=== PATIENT | female | born 1955 | race Caucasian/White ===

== ENCOUNTER 2018-07-31 00:14 | Emergency (ER) | payer MEDICARE, BC ==
[2018-07-31 00:23] VITALS: BP 126/73
--- NOTE | 2018-07-31 01:11 | ER Document Report ---
ED General - General Chief Complaint: Skin Problem Stated Complaint: ARM PAIN Time Seen by Provider: 07/31/18 00:41 Notes: Patient is a 62-year-old female with a past medical history of a left elbow arthroplasty done at [facility] on 07/18 who presents with 24 hours of drainage from the wound as well as increasing swelling. She notes a mild, throbbing, aching pain to the area. Nothing improves or worsens her symptoms. She denies associated fever or constitutional symptoms. She has not contacted her doctor regarding today's concerns. No previous history of the same. She denies any additional symptoms or concerns. TRAVEL OUTSIDE OF THE [place] IN LAST 30 DAYS: No - Related Data Allergies/Adverse Reactions: No Known Allergies Allergy (Verified 01/11/14 14:01) Past Medical History - General Information source: Patient - Social History Smoking Status: Current Every Day Smoker Frequency of alcohol use: None Drug Abuse: None Lives with: Spouse/Significant other Family History: Arthritis, CAD, Malignancy Patient has suicidal ideation: No Patient has homicidal ideation: No - Past Medical History Cardiac Medical History: Reports: Hx Hypercholesterolemia Pulmonary Medical History: Reports: Hx COPD, Hx Pneumonia Denies: Hx Tuberculosis Neurological Medical History: Reports: Hx Seizures Renal/ Medical History: Denies: Hx Peritoneal Dialysis GI Medical History: Reports: Hx Hepatitis - c, Hx Hiatal Hernia Psychiatric Medical History: Reports: Hx Depression Infectious Medical History: Reports: Hx Hepatitis - c Past Surgical History: Reports: Hx Section - x1, Hx Cholecystectomy, Hx Orthopedic Surgery - carpal tunnel surgeries, right ankle. Denies: Hx Pacemaker - Immunizations Immunizations up to date: Yes Hx Diphtheria, Pertussis, Tetanus Vaccination: Yes Hx Pneumococcal Vaccination: 10/11/12 Review of Systems - Review of Systems Notes: Constitutional: Negative for fever. HENT: Negative for sore throat. Eyes: Negative for visual changes. Cardiovascular: Negative for chest pain. Respiratory: Negative for shortness of breath. Gastrointestinal: Negative for abdominal pain, vomiting or diarrhea. Genitourinary: Negative for dysuria. Musculoskeletal: Negative for back pain. Skin: Positive for rash. Neurological: Negative for headaches, weakness or numbness. 10 point ROS negative except as marked above and in HPI. Physical Exam - Vital signs Vitals: Temp Pulse Resp BP Pulse Ox 99.3 F 102 H 18 126/73 H 95 07/31/18 00:22 07/31/18 00:22 07/31/18 00:22 07/31/18 00:22 07/31/18 00:22 Interpretation: Tachycardic - Resolved at the time my assessment Notes: PHYSICAL EXAMINATION: GENERAL: Well-appearing, well-nourished and in no acute distress. HEAD: Atraumatic, normocephalic. EYES: Pupils equal round and reactive to light, extraocular movements intact, sclera anicteric, conjunctiva are normal. ENT: nares patent, oropharynx clear without exudates. Moist mucous membranes. NECK: Normal range of motion, supple without lymphadenopathy LUNGS: Breath sounds clear to auscultation bilaterally and equal. No wheezes rales or rhonchi. HEART: Regular rate and rhythm without murmurs ABDOMEN: Soft, nontender, normoactive bowel sounds. No guarding, no rebound. No masses appreciated. EXTREMITIES: Normal range of motion, no pitting or edema. No cyanosis. NEUROLOGICAL: No focal neurological deficits. Moves all extremities spontaneously and on command. PSYCH: Normal mood, normal affect. SKIN: Warm, Dry, normal turgor, overall well healing incision over the left elbow with a small amount of purulent drainage from a punctate opening near the lateral epicondyle Course - Re-evaluation Re-evalutation: 07/31/18 01:09 Patient presents with a mild amount of purulent drainage from an incision over her left elbow after she had a left elbow replacement. No significant cellulitis or erythema to the area, no pain on palpation. Full flexion extension of the elbow. Given the small amount of purulent drainage around the incisional site itself the patient will be started on antibiotics, cephalexin for the next 7 days. I have advised very close follow-up with her orthopedic surgeon. I do not see indication for labs or imaging at this point given the absence of vital sign derangements, fever or constitutional symptoms. Initial heart rate was 102 in triage which has completely resolved at the time of my evaluation is currently 84. At this time will discharge with return precautions and follow-up recommendations. Verbal discharge instructions given a the bedside and opportunity for questions given. Medication warnings reviewed. Patient is in agreement with this plan and has verbalized understanding of return precautions and the need for primary care follow-up in the next 24-72 hours. - Vital Signs Vital signs: Temp Pulse Resp BP Pulse Ox 99.3 F 102 H 18 126/73 H 95 07/31/18 00:22 07/31/18 00:22 07/31/18 00:22 07/31/18 00:22 07/31/18 00:22 Discharge - Discharge Clinical Impression: Incisional infection, Incisional pain Condition: Good Disposition: HOME, SELF-CARE Additional Instructions: The rash is likely due to infection of your skin related to your recent surgery. You need to take the antibiotics as prescribed. Do not stop even if the rash goes away until you have completed all the antibiotics. Please contact your orthopedic surgeon at your earliest ability, ideally tomorrow morning to notify them of the your visit to the emergency department and that you are currently on antibiotics. You should also return if you develop fevers with temperature greater than 101, persistent vomiting, worsening pain, or have any other symptoms that are concerning to you. Prescriptions: Cephalexin Monohydrate [Keflex 500 mg Capsule] 500 mg PO Q6H 7 Days capsule Referrals: [facility] [NO LOCAL MD] - Follow up as needed
[2018-07-31] MEDS ORDERED: CEPHALEXIN 500 MG CAPSULE PO ONE (01:12)
== END 2018-07-31 01:39 | disposition home or self-care (01) ==
LOC: ER 00:14
DX: T81.49XA Infection following a procedure, other surgical site, initial encounter (principal); Z98.890 Other specified postprocedural states; G89.18 Other acute postprocedural pain; M25.522 Pain in left elbow; F17.200 Nicotine dependence, unspecified, uncomplicated; J44.9 Chronic obstructive pulmonary disease, unspecified; R21 Rash and other nonspecific skin eruption
CPT/HCPCS: 99283; A9270

== ENCOUNTER 2018-09-19 12:33 | Emergency (ER) | payer BC ==
[2018-09-19 12:38] VITALS: BP 118/71
== END 2018-09-19 13:00 | disposition left against medical advice (07) ==
LOC: ER 12:33
DX: Z53.21 Procedure and treatment not carried out due to patient leaving prior to being seen by health care provider (principal)

== ENCOUNTER 2020-06-06 20:41 | Emergency (ER) | payer MEDICARE, BC ==
[2020-06-06 20:50] VITALS: BP 149/90
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
[2020-06-06 21:33] LABS: ABSOLUTE BASOPHILS # (AUTO) 0.1 10^3/uL (0.0-0.2); ABSOLUTE EOSINOPHILS # (AUTO) 0.2 10^3/uL (0.0-0.6); ABSOLUTE LYMPHOCYTES (AUTO) 3.6 10^3/uL (0.5-4.7); ABSOLUTE MONOCYTES (AUTO) 1.3 10^3/uL (0.1-1.4); ABSOLUTE NEUT (AUTO) 9.6 10^3/uL (1.7-8.2); BASOPHILS % (AUTO) 0.5 % (0-2); EOSINOPHILS % (AUTO) 1.2 % (0-6); HEMATOCRIT 37.4 % (36.0-47.0); HEMOGLOBIN 12.5 g/dL (12.0-15.5); LYMPHOCYTES % (AUTO) 24.3 % (13-45); MEAN CORPUSCULAR HEMOGLOBIN 27.1 pg (27.0-33.4); MEAN CORPUSCULAR HGB CONC 33.5 g/dL (32.0-36.0); MEAN CORPUSCULAR VOLUME 81 fl (80-97); MONOCYTES % (AUTO) 8.7 % (3-13); PLATELET COUNT 445 10^3/uL (150-450); RED BLOOD COUNT 4.62 10^6/uL (3.72-5.28); RED CELL DISTRIBUTION WIDTH 14.5 % (11.5-14.0); SEGMENTED NEUTROPHILS % (AUTO) 65.3 % (42-78); TOTAL CELLS COUNTED % (AUTO) 100 %; WHITE BLOOD COUNT 14.8 10^3/uL (4.0-10.5)
[2020-06-06 21:48] LABS: ALBUMIN 4.5 g/dL (3.5-5.0); ALKALINE PHOSPHATASE 132 U/L (38-126); ANION GAP 13 (5-19); ASPARTATE AMINO TRANSFERASE 37 U/L (14-36); BILIRUBIN,DIRECT 0.4 mg/dL (0.0-0.4); BILIRUBIN,TOTAL 0.4 mg/dL (0.2-1.3); BLOOD UREA NITROGEN 19 mg/dL (7-20); CALCIUM 10.5 mg/dL (8.4-10.2); CARBON DIOXIDE 28 mmol/L (22-30); CHLORIDE 100 mmol/L (98-107); GLUCOSE 102 mg/dL (75-110); POTASSIUM 5.1 mmol/L (3.6-5.0); TOTAL PROTEIN 8.3 g/dL (6.3-8.2)
--- NOTE | 2020-06-06 21:56 | RADIOLOGY REPORT (SQ) ---
CLINICAL INDICATION: Right flank pain. . TECHNIQUE: Noncontrast spiral axial CT imaging was obtained of the abdomen and pelvis with multiplanar reconstructions. This exam was performed according to our departmental dose-optimization program, which includes automated exposure control, adjustment of the mA and/or kV according to patient size and/or use of iterative reconstruction techniques. COMPARISON: None. CORRELATION: None. FINDINGS: Abdomen: The lung bases demonstrate mild scarring right lung base. No acute process.. The heart is of normal size. Small pericardial effusion, not percutaneously accessible. No pleural fluid.. Remote postsurgical change to the sternum and right anterior ribs The liver is homogeneous. The gallbladder is surgically absent. The pancreas is of grossly normal contour on this noncontrast examination. The spleen is unremarkable. The adrenals are unremarkable. The kidneys appear grossly normal without evidence of urolithiasis or hydronephrosis. There is no evidence of free air. No free fluid. No bulky adenopathy. Abdominal aorta is nonaneurysmal. Pelvis: The bowel is nonobstructed. The bowel is unopacified with oral contrast. Pelvic contents are unremarkable. The appendix is not seen. Moderate hard stool within the colon.. Visualized bones demonstrate age-appropriate osteoarthritis. IMPRESSION: No acute intra-abdominal process is identified. The cause of the patient's right flank pain is not identified on this examination..
== END 2020-06-07 00:33 | disposition left against medical advice (07) ==
LOC: ER 20:41
DX: R10.9 Unspecified abdominal pain (principal); D72.829 Elevated white blood cell count, unspecified; J44.9 Chronic obstructive pulmonary disease, unspecified; Z87.19 Personal history of other diseases of the digestive system; Z90.49 Acquired absence of other specified parts of digestive tract; Z53.20 Procedure and treatment not carried out because of patient's decision for unspecified reasons
CPT/HCPCS: 36415; 74176; 80053; 83690; 85025; 87086; 99281

== ENCOUNTER 2020-06-07 07:38 | Emergency (ER) | payer MEDICARE, BC ==
--- NOTE | 2020-06-07 08:42 | ER Document Report ---
ED GI/ - General Chief Complaint: Upper Abdominal Pain Stated Complaint: URINARY ISSUES Time Seen by Provider: 06/07/20 08:33 Primary Care Provider: PAYAM MCALLISTER MD [NO LOCAL MD] - Follow up as needed Notes: CHIEF COMPLAINT: Right flank pain for 2 days HPI: 64-year-old female presenting with right flank pain for 2 days fairly constant worse with movement or certain position changes. No fever. Patient does report some urinary hesitancy and retention since last night. No chest pain. No shortness of breath. Patient states she was seen in the emergency department last night but left because the wait times were too long. She states she was called back today ROS: See HPI - all other systems were reviewed and are otherwise negative Constitutional: no fever Eyes: no drainage, no blurred vision ENT: no runny nose, no sore throat Cardiovascular: no chest pain Resp: no SOB, no cough GI: no vomiting, no diarrhea, + abdominal pain : no dysuria, positive urinary hesitancy Integumentary: no rash Allergy: no hives Musculoskeletal: no extremity pain or swelling Neurological: no numbness/tingling, no weakness MEDICATIONS: I agree with the patient medications as charted by the RN. ALLERGIES: I agree with the allergies as charted by the RN. PAST MEDICAL HISTORY/PAST SURGICAL HISTORY: Reviewed and agree as charted by RN. SOCIAL HISTORY: Reviewed and agree as charted by RN. FAMILY HISTORY: No significant familial comorbid conditions directly related to patient complaint EXAM: Reviewed vital signs as charted by RN. CONSTITUTIONAL: Alert and oriented and responds appropriately to questions. Well-appearing; well-nourished HEAD: Normocephalic; atraumatic EYES: PERRL; Conjunctivae clear, sclerae non-icteric ENT: normal nose; no rhinorrhea; moist mucous membranes; pharynx without lesions noted, no uvula edema or deviation, no tonsillar hypertrophy, phonation normal NECK: Supple without meningismus; non-tender; no cervical lymphadenopathy, no masses CARD: RRR; no murmurs, no clicks, no rubs, no gallops; symmetric distal pulses RESP: Normal chest excursion without splinting or tachypnea; breath sounds clear and equal bilaterally; no wheezes, no rhonchi, no rales, pulse oximetry 97% on room air not hypoxic ABD/GI: Normal bowel sounds; non-distended; soft, mild tenderness through the right upper quadrant on palpation. No visible rash on the abdominal wall, no rebound, no guarding; no palpable organomegaly or masses. BACK: The back appears normal and is non-tender to palpation, there is no CVA tenderness EXT: Normal ROM in all joints; non-tender to palpation; no cyanosis, no effusions, no edema SKIN: Normal color for age and race; warm; dry; good turgor; no acute lesions noted NEURO: Moves all extremities equally; Motor and sensory function intact PSYCH: The patient's mood and manner are appropriate. Grooming and personal hygiene are appropriate. MDM: 64-year-old female with history of cholecystectomy with right upper quadrant pain for 2 days. Patient showed a mild leukocytosis on yesterday's lab work of 14.6. Did not obtain urinalysis last night. Did have CT of the abdomen and pelvis which showed no acute abnormalities other than constipation. Will re check lab work today will obtain urinalysis will obtain chest x-ray given the right upper quadrant pain to ensure no pleural component. Low suspicion for ACS. TRAVEL OUTSIDE OF THE [place] IN LAST 30 DAYS: No - Related Data Allergies/Adverse Reactions: No Known Allergies Allergy (Verified 09/19/18 12:34) Past Medical History - Social History Smoking Status: Never Smoker Chew tobacco use (# tins/day): No Frequency of alcohol use: None Drug Abuse: Marijuana Family History: Arthritis, CAD, Malignancy - Past Medical History Cardiac Medical History: Reports: Hx Hypercholesterolemia Pulmonary Medical History: Reports: Hx COPD, Hx Pneumonia Denies: Hx Tuberculosis Neurological Medical History: Reports: Hx Seizures Renal/ Medical History: Denies: Hx Peritoneal Dialysis GI Medical History: Reports: Hx Hepatitis - c, Hx Hiatal Hernia Psychiatric Medical History: Reports: Hx Depression Infectious Medical History: Reports: Hx Hepatitis - c Past Surgical History: Reports: Hx Section - x1, Hx Cholecystectomy, Hx Orthopedic Surgery - carpal tunnel surgeries, right ankle. Denies: Hx Pacemaker - Immunizations Immunizations up to date: Yes Hx Diphtheria, Pertussis, Tetanus Vaccination: Yes Hx Pneumococcal Vaccination: 10/11/12 Physical Exam - Vital signs Vitals: Temp Pulse Resp BP Pulse Ox 98.3 F 100 20 122/74 100 06/07/20 07:42 06/07/20 07:42 06/07/20 07:42 06/07/20 07:42 06/07/20 07:42 Course - Re-evaluation Re-evalutation: 06/07/20 11:00 Patient's pain is improved. Her WBC count has improved. Urine does not show evidence of infection, on review of her CT imaging yesterday she appears constipated. This is likely causing some of her discomfort. We will give her mag citrate to take at home, follow-up with her PCP return if condition worsens. Do not suspect sepsis, pneumonia or ACS - Vital Signs Vital signs: Temp Pulse Resp BP Pulse Ox 98.3 F 100 20 122/74 100 06/07/20 07:42 06/07/20 07:42 06/07/20 07:42 06/07/20 07:42 06/07/20 07:42 - Laboratory Result Diagrams: 06/07/20 09:15 06/07/20 09:15 Laboratory results interpreted by me: 06/07/20 06/07/20 06/07/20 09:15 09:15 09:56 WBC 11.5 H Hgb 11.9 L Hct 35.5 L RDW 14.6 H AST 42 H Alkaline Phosphatase 129 H Urine Protein 30 H Discharge - Discharge Clinical Impression: Abdominal pain, right upper quadrant Constipation Qualifiers: Constipation type: unspecified constipation type Qualified Code(s): K59.00 - Constipation, unspecified Condition: Stable Disposition: HOME, SELF-CARE Instructions: Abdominal Pain ([facility]) Additional Instructions: Take the magnesium citrate to help with constipation. Take MiraLAX daily after this. Follow-up with your primary care provider for reevaluation of your symptoms call for appointment. Return for worsening condition. Your imaging studies and lab work today did not show a definitive reason for your pain Prescriptions: Polyethylene Glycol 3350 [Gavilax] 17 gm PO DAILY PRN #[id number] [email or web address] PRN Reason: Referrals: PAYAM MCALLISTER MD [NO LOCAL MD] - Follow up as needed
[2020-06-07 09:42] LABS: ABSOLUTE BASOPHILS # (AUTO) 0.1 10^3/uL (0.0-0.2); ABSOLUTE EOSINOPHILS # (AUTO) 0.2 10^3/uL (0.0-0.6); ABSOLUTE LYMPHOCYTES (AUTO) 2.7 10^3/uL (0.5-4.7); ABSOLUTE MONOCYTES (AUTO) 1.3 10^3/uL (0.1-1.4); ABSOLUTE NEUT (AUTO) 7.3 10^3/uL (1.7-8.2); BASOPHILS % (AUTO) 0.7 % (0-2); HEMATOCRIT 35.5 % (36.0-47.0); HEMOGLOBIN 11.9 g/dL (12.0-15.5); MEAN CORPUSCULAR HEMOGLOBIN 27.2 pg (27.0-33.4); MEAN CORPUSCULAR HGB CONC 33.6 g/dL (32.0-36.0); MEAN CORPUSCULAR VOLUME 81 fl (80-97); MONOCYTES % (AUTO) 11.2 % (3-13); PLATELET COUNT 419 10^3/uL (150-450); RED BLOOD COUNT 4.39 10^6/uL (3.72-5.28); RED CELL DISTRIBUTION WIDTH 14.6 % (11.5-14.0); SEGMENTED NEUTROPHILS % (AUTO) 63.1 % (42-78); TOTAL CELLS COUNTED % (AUTO) 100 %; WHITE BLOOD COUNT 11.5 10^3/uL (4.0-10.5)
--- NOTE | 2020-06-07 09:45 | RADIOLOGY REPORT (SQ) ---
EXAM DESCRIPTION: CHEST 2 VIEWS IMAGES COMPLETED DATE/TIME: 06/07/2020 9:23 am REASON FOR STUDY: RUQ pain COMPARISON: AP view of the chest from 04/19/2012. EXAM PARAMETERS: NUMBER OF VIEWS: Two views. TECHNIQUE: PA and lateral views of the chest were obtained. RADIATION DOSE: NA LIMITATIONS: None. FINDINGS: LUNGS AND PLEURA: No consolidation, pleural effusion or pneumothorax. MEDIASTINUM AND HILAR STRUCTURES: No mediastinal or hilar contour abnormality. HEART AND VASCULAR STRUCTURES: The cardiac silhouette and pulmonary vasculature are within normal bean its. BONES: No acute findings. HARDWARE: Cholecystectomy clips and sternotomy hardware. OTHER: No other finding. IMPRESSION: No acute cardiopulmonary process. TECHNICAL DOCUMENTATION: JOB ID: [id number] 2010 [employer]- All Rights Reserved Reading location - IP/workstation name: [email or web address]
[2020-06-07 09:58] LABS: ALBUMIN 4.4 g/dL (3.5-5.0); ALKALINE PHOSPHATASE 129 U/L (38-126); ANION GAP 13 (5-19); ASPARTATE AMINO TRANSFERASE 42 U/L (14-36); BILIRUBIN,DIRECT 0.4 mg/dL (0.0-0.4); BILIRUBIN,TOTAL 0.4 mg/dL (0.2-1.3); BLOOD UREA NITROGEN 20 mg/dL (7-20); CALCIUM 9.7 mg/dL (8.4-10.2); CARBON DIOXIDE 26 mmol/L (22-30); CHLORIDE 100 mmol/L (98-107); GLUCOSE 85 mg/dL (75-110); POTASSIUM 4.3 mmol/L (3.6-5.0); TOTAL PROTEIN 8.1 g/dL (6.3-8.2)
[2020-06-07 10:56] LABS: APPEARANCE,URINE CLEAR; BILIRUBIN,URINE NEGATIVE (NEGATIVE); COLOR,URINE YELLOW; GLUCOSE, URINE NEGATIVE (NEGATIVE); KETONES,URINE NEGATIVE (NEGATIVE); LEUKOCYTE ESTERASE,URINE NEGATIVE (NEGATIVE); NITRITE,URINE NEGATIVE (NEGATIVE); PROTEIN,URINE 30 mg/dL (NEGATIVE); URINE SPECIFIC GRAVITY 1.025; UROBILINOGEN,URINE NEGATIVE mg/dL (<2.0)
[2020-06-07] MEDS ORDERED: MAGNESIUM CITRATE 296 ML BOTTLE PO ONE (11:01)
[2020-06-07 11:21] VITALS: BP 110/77
== END 2020-06-07 11:54 | disposition home or self-care (01) ==
LOC: ER 07:38
DX: K59.00 Constipation, unspecified (principal); R10.11 Right upper quadrant pain; R39.11 Hesitancy of micturition; R33.9 Retention of urine, unspecified; R10.811 Right upper quadrant abdominal tenderness; F12.10 Cannabis abuse, uncomplicated; Z90.49 Acquired absence of other specified parts of digestive tract
CPT/HCPCS: 99284; 36415; 83690; 85025; 80053; 81001; 71046; A9270; J3490

== ENCOUNTER → 2020-08-26 | Day surgery (SDC) | payer MEDICARE, BC ==
--- NOTE | 2020-08-26 14:48 | RADIOLOGY REPORT (SQ) ---
EXAM DESCRIPTION: PICC LINE REPLACEMENT IMAGES COMPLETED DATE/TIME: 08/26/2020 2:47 pm REASON FOR STUDY: PROSTHETIC JOINT INFECTUON/ANTIBIOTICS T84.50XD INFECT/INFLM REACTION DUE TO UNSP INT JOINT PROSTH, COMPARISON: None. FLUOROSCOPY TIME: FT: 15 seconds. 1 image saved to PACS. TECHNIQUE: Fluoroscopic guided PICC replacement. LIMITATIONS: None. PROCEDURE: After written consent and assessment were obtained, the patient was brought into the fluo roscopy room and place supine on the table. The right arm an existing PICC was prepped and draped i n a sterile fashion. The entry site was anesthetized with 1% lidocaine. A .018 guide wire was then i nserted through the existing PICC and into the venous system. The old catheter was then removed and a new catheter measuring 36 cm was advanced over the wire and into the venous system. The wire was th en removed and the catheter was adhered to the patients arm with a stat lock. The catheter was then a spirated and flushed and a sterile bandage was placed over the access site. A fluoroscopic spot imag e was saved to PACS confirming the catheter tip within the superior vena cava. IMPRESSION: SUCCESSFUL OVER THE WIRE REPLACEMENT OF AN OLD PICC FOR A NEW 5 FR X 36 CM DUAL LUMEN PI CC IN THE RIGHTARM. COMMENT: Patient medication list reviewed: Yes- Quality ID# [id number]:Eligible professional attests to doc umenting in the medical record they obtained, updated, or reviewed the patient's current medications. . Quality ID 145: Final reports for procedures using fluoroscopy that document radiation exposure [place], or exposure time and number of fluorographic images (if radiation exposure indices are not avail able) Quality ID #76: The patient was prepped and draped using maximum sterile barrier technique including cap, mask, sterile gown, sterile gloves, a large sterile sheet, hand hygiene, and 2% Chlorhexidine fo r cutaneous antisepsis. When ultrasound is used, sterile ultrasound techniques are followed requiring sterile gel and sterile probes. TECHNICAL DOCUMENTATION: JOB ID: [id number] 2010 [employer]- All Rights Reserved Reading location - IP/workstation name: [email or web address] [id number]
== END ==
LOC: RAD 13:39
PROVIDERS: ATTEND Internal Medicine Infectious Disease
DX: T84.50XD Infection and inflammatory reaction due to unspecified internal joint prosthesis, subsequent encounter (principal); X58.XXXD Exposure to other specified factors, subsequent encounter
CPT/HCPCS: 36584; J1642